=== PATIENT | female | born 1990 | race Caucasian/White ===

== ENCOUNTER 2017-02-09 14:30 | Emergency (ER) | payer BC ==
[2017-02-09 14:31] VITALS: BMI 21.2
[2017-02-09 14:36] VITALS: RESP 18; O2SAT 98
--- NOTE | 2017-02-09 15:17 | C.PDOC ---
History Of Present Illness 27 yr old female presents to the ER with complaints of sinus congestion, frontal headache for the past several days. Patient also reports of subjective fever 2 days ago, along with occasional cough and pleuritic chest pain. Patient reports limited relief with sudafed, mucinex and NSAIDS. Denies history of asthma, chest congestion, SOB, nausea, vomiting or neck pain. SINUS CONGESTION, FRONTAL MELENDEZ X SEV DAYS. SUBJ FEVER 2 DAYS AGO. +OCC COUGH. NO CHEST CONGESTION, SOB. +PLEURITIC CP. DENIES HO ASTHMA, SMOKING. LIMITED RELIEF W SUDAFED, MUCINEX, NSAIDS EXAM MILD DIST NONTOXIC HEENT +SINUS SINGH W CLEAR RHINORRHEA LUNGS CTA B/L NO W/R/R Time Seen by Provider: 02/09/17 14:50 Chief Complaint (Nursing): Chest Pain History Per: Patient History/Exam Limitations: no limitations Onset/Duration Of Symptoms: Days Current Symptoms Are (Timing): Still Present Past Medical History Reviewed: Historical Data, Nursing Documentation, Vital Signs Vital Signs: Last Vital Signs Temp 97.6 F 02/09/17 14:36 Pulse 86 02/09/17 14:36 Resp 18 02/09/17 14:36 BP 114/81 02/09/17 14:36 Pulse Ox 98 02/09/17 15:20 - Medical History PMH: Gastritis, Kidney Stones Comment Only: Asthma (as a child) Surgical History: Tonsillectomy Family History: States: No Known Family Hx - Social History Hx Tobacco Use: No Hx Alcohol Use: Yes Hx Substance Use: No - Immunization History Hx Tetanus Toxoid Vaccination: No Hx Influenza Vaccination: No Hx Pneumococcal Vaccination: No Review Of Systems Except As Marked, All Systems Reviewed And Found Negative. Constitutional: Positive for: Fever (Subjective) ENT: Positive for: Other ((+) Sinus congestion) Cardiovascular: Positive for: Chest Pain (Pleuritic chest pain) Respiratory: Positive for: Cough. Negative for: Shortness of Breath Gastrointestinal: Negative for: Nausea, Vomiting Musculoskeletal: Negative for: Neck Pain Neurological: Positive for: Headache (Frontal headache) Physical Exam - Physical Exam Appears: Non-toxic, In Acute Distress (Mild) Skin: Warm, Dry, No Rash Head: Atraumatic, Normacephalic Eye(s): bilateral: Normal Inspection, PERRL, EOMI Ear(s): Bilateral: Normal Nose: Discharge (Clear rhinorrhea), Other ((+) Sinus congestion ) Oral Mucosa: Moist Respiratory: Normal Breath Sounds, No Rales, No Rhonchi, No Stridor, No Wheezing Gastrointestinal/Abdominal: Normal Exam, Soft, No Tenderness, No Guarding, No Rebound Extremity: Normal ROM, No Swelling Neurological/Psych: Oriented x3, Normal Speech, Normal Motor ED Course And Treatment O2 Sat by Pulse Oximetry: 98 (RA) Pulse Ox Interpretation: Normal - Radiology CXR: Interpreted by Me, Viewed By Me CXR Interpretation: Yes: No Acute Disease Medical Decision Making Medical Decision Making: PLAN: * CXR Disposition Counseled Patient/Family Regarding: Diagnosis, Need For Followup - Disposition Referrals: YOUR,PMD [Other] Disposition: HOME/ ROUTINE Disposition Time: 15:18 Condition: GOOD Additional Instructions: AFRIN NASAL SPRAY DIRECTED MAX 3 DAYS USE. Prescriptions: Loratadine [Claritin] 10 mg PO DAILY #20 tab Oxymetazoline 0.05% [Oxymetazoline HCl 30 Ml] 2 spr NS BID #1 bottle Pseudoephedrine HCl [Sudafed 24 Hour] 240 mg PO DAILY PRN #1 unit PRN Reason: Sinus Symptoms Instructions: Sinusitis (ED) Forms: [facility] (Divehi) - Clinical Impression Clinical Impression: Pleurisy, Sinusitis - Scribe Statement The provider has reviewed the documentation as recorded by the Andrésibelodia Ellis Provider Attestation: All medical record entries made by the Scribe were at my direction and personally dictated by me. I have reviewed the chart and agree that the record accurately reflects my personal performance of the history, physical exam, medical decision making, and the department course for this patient. I have also personally directed, reviewed, and agree with the discharge instructions and disposition.
--- NOTE | 2017-02-09 15:35 | RAD ---
HISTORY: cough COMPARISON: None available. TECHNIQUE: Chest PA and lateral FINDINGS: LUNGS: No focal consolidation. Please note that chest x-ray has limited sensitivity for the detection of pulmonary masses. PLEURA: No significant pleural effusion identified. No definite pneumothorax . CARDIOVASCULAR: The cardiomediastinal silhouette appears within normal limits of size. OSSEOUS STRUCTURES: No acute osseous abnormality identified. VISUALIZED UPPER ABDOMEN: Unremarkable. OTHER FINDINGS: None. IMPRESSION: No focal consolidation, significant pleural effusion, or definite pneumothorax identified.
[2017-02-09 15:41] VITALS: BP 114/69; PULSE 82; TEMP 98.1
== END 2017-02-09 15:33 | disposition home or self-care (01) ==
LOC: C.ER 14:30
DX: J32.9 Chronic sinusitis, unspecified (principal); R09.1 Pleurisy

== ENCOUNTER 2017-11-08 13:22 | Emergency (ER) | payer BC, OTHER ==
[2017-11-08 13:22] VITALS: BMI 21.2
[2017-11-08] MEDS ORDERED: Sodium Chloride 0.9% 1,000 ML IV STA (13:28)
--- NOTE | 2017-11-08 13:35 | C.PDOC ---
History Of Present Illness 27 y/o F c no PMHx p/w R flank pain x 30 minutes. Pain is severe, R flank radiating to R lower abdomen, associated with NBNB vomiting. Patient has never had this pain before. Denies fever, chills, chest pain, dyspnea, diarrhea, constipation, rash, dysuria, hematuria. Time Seen by Provider: 11/08/17 13:28 Past Medical History Vital Signs: Last Vital Signs Temp 97.4 F L 11/08/17 13:38 Pulse 90 11/08/17 13:38 Resp 24 11/08/17 13:38 BP 131/89 11/08/17 13:38 Pulse Ox 100 11/08/17 13:38 - Medical History PMH: Gastritis, Kidney Stones Comment Only: Asthma (as a child) Surgical History: Tonsillectomy Family History: States: No Known Family Hx - Social History Hx Tobacco Use: No Hx Alcohol Use: Yes Hx Substance Use: No - Immunization History Hx Tetanus Toxoid Vaccination: No Hx Influenza Vaccination: No Hx Pneumococcal Vaccination: No Review Of Systems Except As Marked, All Systems Reviewed And Found Negative. Constitutional: Negative for: Fever Respiratory: Negative for: Shortness of Breath Physical Exam - Physical Exam Additional Physical Exam Comments: Constitutional: Writhing in pain Head: Normocephalic. Atraumatic. Eyes: PERRL. ENT: Moist mucous membranes. Neck: Supple. Cardiovascular: Regular rate. Radial pulse 2+ bilaterally. Chest: No tenderness. Respiratory: Clear to auscultation bilaterally. GI: Soft. Nontender. Nondistended. Back: R CVA tenderness Musculoskeletal: No tenderness or swelling of extremities. Skin: No rash. Neurologic: Alert, no focal deficit. ED Course And Treatment - Laboratory Results Result Diagrams: 11/08/17 13:37 11/08/17 13:37 Medical Decision Making Medical Decision Making: Differential includes nephrolithiasis, pyelonephritis, ectopic . Will evaluate further with labs, urine, noncontrast CT. Treated with toradol, IVF, Zofran. IMPRESSION: Mild right hydronephrosis and hydroureter up to 2 millimeter calculus at the UV junction. Bilateral 2 millimeter nonobstructing renal calculi. F/u urology, return to ED for worsening pain, inability to take PO, fever, or any other problem. Drug registry checked, no previous prescriptions in prior year, advised on risks of narcotic use. Disposition - Disposition Referrals: Mark Schneider MD [Staff Provider] - Disposition: HOME/ ROUTINE Disposition Time: 15:59 Condition: STABLE Additional Instructions: IMPRESSION: Mild right hydronephrosis and hydroureter up to 2 millimeter calculus at the UV junction. Bilateral 2 millimeter nonobstructing renal calculi. Prescriptions: Famotidine [Pepcid] 1 tab PO BID #14 tab Ibuprofen [Motrin] 1 tab PO Q6 #30 tab Ondansetron ODT [Zofran ODT] 4 mg PO Q8 #12 odt oxyCODONE/Acetaminophen [Percocet 5/325 mg Tab] 1 - 2 tab PO Q6 PRN #10 tab PRN Reason: Pain, Severe (8-10) Tamsulosin [Flomax] 0.4 mg PO DAILY #5 cap Instructions: Kidney Stones (DC) Forms: Work Excuse - Clinical Impression Clinical Impression: Kidney stone
[2017-11-08 13:43] LABS: BASO % 0.2 % (0.0-2.0); EOS # 0.4 K/uL (0.0-0.7); EOS % 6.7 % (0.0-4.0); HEMOGLOBIN 14.1 g/dL (11.0-16.0); LYMPH # 2.3 K/uL (1.0-4.3); LYMPH % 37.5 % (20.0-40.0); MEAN CELL VOLUME 90.6 fL (81.0-99.0); MEAN CORPUSCULAR HEMOGLOBIN 30.7 pg (27.0-31.0); MEAN CORPUSCULAR HGB CONC 33.9 g/dL (33.0-37.0); MEAN PLATELET VOLUME 10.9 fL (7.2-11.7); MONO # 0.6 K/uL (0.0-0.8); MONO % 10.4 % (0.0-10.0); NEUT # 2.7 K/uL (1.8-7.0); NEUT % 45.2 % (50.0-75.0); RBC 4.58 Mil/uL (3.80-5.20); RED CELL DISTRIBUTION WIDTH 12.5 % (11.5-14.5); WHITE BLOOD COUNT 6.1 K/uL (4.8-10.8)
[2017-11-08] MEDS ORDERED: Sodium Chloride 0.9% 1,000 ML ONE (13:50)
[2017-11-08 13:57] LABS: ALB/GLOB RATIO 1.6 (1.0-2.1); ALBUMIN 4.6 g/dL (3.5-5.0); ALT/SGPT 47 U/L (9-52); AST/SGOT 27 U/L (14-36); BLOOD UREA NITROGEN 12 mg/dL (7-17); GFR AFRICAN-AMERICAN > 60; GFR NON-AFRICAN AMERICAN > 60; LIPASE 101 U/L (23-300)
[2017-11-08 14:00] VITALS: O2SAT 100
[2017-11-08] MEDS ORDERED: Morphine 4 MG/ML VIAL ONE (14:24)
[2017-11-08 15:21] LABS: HCG,QUALITATIVE URINE NEGATIVE (NEGATIVE)
[2017-11-08 15:22] LABS: SQUAMOUS EPITHIAL 2 /hpf (0-5); URINE BILIRUBIN NEGATIVE (NEGATIVE); URINE BLOOD NEGATIVE (NEGATIVE); URINE CLARITY Clear (Clear); URINE COLOR Colorless (YELLOW); URINE GLUCOSE (UA) NORMAL (Normal); URINE LEUKOCYTE ESTERASE NEG Leu/uL (Negative); URINE PROTEIN NEGATIVE (NEGATIVE); URINE UROBILINOGEN NORMAL mg/dL (0.2-1.0)
--- NOTE | 2017-11-08 15:53 | CT ---
Date of service: 11/08/2017 PROCEDURE: CT Abdomen and Pelvis without intravenous contrast HISTORY: R flank pain COMPARISON: Comparison is made with prior study dated 03/13/2014 TECHNIQUE: A axial and reformatted coronal and sagittal CT images of the abdomen and pelvis were obtained without IV or oral contrast administration. Contrast dose: 0 Radiation dose: Total exam DLP = 374.57 mGy-cm. This CT exam was performed using one or more of the following dose reduction techniques: Automated exposure control, adjustment of the mA and/or kV according to patient size, and/or use of iterative reconstruction technique. FINDINGS: LOWER THORAX: Unremarkable. LIVER: Unremarkable. No gross lesion or ductal dilatation. GALLBLADDER AND BILE DUCTS: Unremarkable. PANCREAS: Unremarkable. No gross lesion or ductal dilatation. SPLEEN: Unremarkable. ADRENALS: Unremarkable. No mass. KIDNEYS AND URETERS: If there is a mild right hydronephrosis and hydroureter up to the UV junction. There is 2 millimeter calculus at the UV junction. There is 2 millimeter nonobstructing calculus at the lower pole of the right kidney. No evidence of left hydronephrosis. There is 2 millimeter nonobstructing calculus at the midpole of the left kidney. VASCULATURE: Unremarkable. No aortic aneurysm. BOWEL: Unremarkable. No obstruction. No gross mural thickening. APPENDIX: Unremarkable. Normal appendix. PERITONEUM: Unremarkable. No free fluid. No free air. LYMPH NODES: Unremarkable. No enlarged lymph nodes. BLADDER: Unremarkable. REPRODUCTIVE: The uterus and adnexa are grossly unremarkable. BONES: No acute fracture. OTHER FINDINGS: None. IMPRESSION: Mild right hydronephrosis and hydroureter up to 2 millimeter calculus at the UV junction. Bilateral 2 millimeter nonobstructing renal calculi.
[2017-11-08] MEDS ORDERED: Oxycodone/Acetaminophen 5/325 mg Tab PO STA (15:58)
[2017-11-08] MEDS ORDERED: Oxycodone/Acetaminophen 5/325 mg Tab ONE (16:10)
[2017-11-08 17:05] VITALS: BP 112/70; PULSE 56; RESP 16; TEMP 98.5
== END 2017-11-08 17:40 | disposition home or self-care (01) ==
LOC: C.ER 13:22
DX: N20.0 Calculus of kidney (principal)
CPT/HCPCS: 74176; 80053; 81001; 83690; 84703; 85025; 87086; 96361; 96374; 96375; 96376; 99285; J1885; J2270; J2405; J7030

== ENCOUNTER 2018-01-23 17:16 | Emergency (ER) | payer BC ==
[2018-01-23 17:17] VITALS: BMI 21.2
--- NOTE | 2018-01-23 17:49 | C.PDOC ---
History Of Present Illness 27 y/o female presents to ED complaining of acute exacerbation of headache that started earlier today. States she gets the headache 1-2 times a week but this one is more intense than usual. Patient normally takes medication for migraine but with no relief and tried OTC medications but could not take any due to vomiting. Notes of light sensitivity but denies fever. <Liset Larson - Last Filed: 01/23/18 18:32> History Per: Patient History/Exam Limitations: no limitations Onset/Duration Of Symptoms: Hrs Current Symptoms Are (Timing): Still Present <NeoLiset - Last Filed: 01/23/18 18:32> <Jaard Blank - Last Filed: 01/23/18 20:37> Time Seen by Provider: 01/23/18 17:44 Chief Complaint (Nursing): GI Problem Past Medical History Reviewed: Historical Data, Nursing Documentation, Vital Signs Vital Signs: Last Vital Signs Temp 98 F 01/23/18 17:30 Pulse 88 01/23/18 17:30 Resp 20 01/23/18 17:30 BP 122/76 01/23/18 17:30 Pulse Ox 97 01/23/18 17:30 - Medical History PMH: Gastritis, Kidney Stones Comment Only: Asthma (as a child) Surgical History: Tonsillectomy Family History: States: No Known Family Hx - Social History Hx Tobacco Use: No Hx Alcohol Use: Yes Hx Substance Use: No - Immunization History Hx Tetanus Toxoid Vaccination: No Hx Influenza Vaccination: No Hx Pneumococcal Vaccination: No <Liset Larson - Last Filed: 01/23/18 18:32> Vital Signs: Last Vital Signs Temp 98 F 01/23/18 17:30 Pulse 88 01/23/18 17:30 Resp 20 01/23/18 17:30 BP 122/76 01/23/18 17:30 Pulse Ox 97 01/23/18 18:33 <Jarad Blank - Last Filed: 01/23/18 20:37> Review Of Systems Except As Marked, All Systems Reviewed And Found Negative. Constitutional: Negative for: Fever Cardiovascular: Negative for: Chest Pain Respiratory: Negative for: Shortness of Breath Gastrointestinal: Positive for: Vomiting. Negative for: Nausea, Abdominal Pain Neurological: Positive for: Headache <NeoLiset - Last Filed: 01/23/18 18:32> Physical Exam - Physical Exam Appears: Non-toxic, In Acute Distress (moderate) Skin: Warm, Dry Head: Atraumatic, Normacephalic Eye(s): bilateral: Photophobia (but tolerating ambient light) Oral Mucosa: Moist Cardiovascular: Rhythm Regular, No Murmur Respiratory: Normal Breath Sounds, No Rales, No Rhonchi, No Wheezing Neurological/Psych: Oriented x3, Normal Speech, Normal Motor, Normal Sensation, Other (No focal deficits) Gait: Steady <Liset Larson - Last Filed: 01/23/18 18:32> ED Course And Treatment O2 Sat by Pulse Oximetry: 97 (RA) Pulse Ox Interpretation: Normal <Liset Larson - Last Filed: 01/23/18 18:32> Pulse Ox Interpretation: Normal Reevaluation Time: 20:21 Reassessment Condition: Improved <Jarad Blank - Last Filed: 01/23/18 20:37> Progress - Data Reviewed Data Reviewed: Old records <Liset Larson - Last Filed: 01/23/18 18:32> Medical Decision Making Medical Decision Making: Plan: --Decadron --Magnesium Sulfate --Reglan --IV Fluids --Toradol <Liset Larson - Last Filed: 01/23/18 18:32> Disposition - Disposition Disposition Time: 19:00 <Liset Larson Last Filed: 01/23/18 18:32> Counseled Patient/Family Regarding: Studies Performed, Diagnosis, Need For Followup, Rx Given <Jarad Blank - Last Filed: 01/23/18 20:37> - Disposition Referrals: Justin Gray MD [Staff Provider] - Disposition: HOME/ ROUTINE Condition: FAIR Additional Instructions: Please return if symptoms recur Prescriptions: Ondansetron ODT [Zofran ODT] 1 odt PO BID PRN #10 odt PRN Reason: Nausea/Vomiting Instructions: Headache, Adult (DC) Forms: [facility] (Setswana) - Clinical Impression Clinical Impression: Migraine, Vomiting - Scribe Statement The provider has reviewed the documentation as recorded by the Reese Bains Provider Attestation: All medical record entries made by the Andrésibe were at my direction and personally dictated by me. I have reviewed the chart and agree that the record accurately reflects my personal performance of the history, physical exam, medical decision making, and the department course for this patient. I have also personally directed, reviewed, and agree with the discharge instructions and disposition. <Liset Larson - Last Filed: 01/23/18 18:32> Physician Patient Turnover Patient Signed Over To: Jarad Blank Handoff Comments: FU REEVAL, DISPO <Liset Larson - Last Filed: 01/23/18 18:32>
[2018-01-23] MEDS ORDERED: Dexamethasone 4 mg/1 ml IVP STA (17:54)
[2018-01-23] MEDS ORDERED: Sodium Chloride 0.9% 1,000 ML IV STA (17:54)
[2018-01-23] MEDS ORDERED: Magnesium Sulfate 1 gm in D5W 1 GM/100 ML BAG IVPB STA (17:54)
[2018-01-23] MEDS ORDERED: Sodium Chloride 0.9% 1,000 ML ONE (18:23)
[2018-01-23] MEDS ORDERED: Dexamethasone 4 mg/1 ml ONE (18:24)
[2018-01-23] MEDS ORDERED: Magnesium Sulfate 1 gm in D5W 1 GM/100 ML BAG IVPB ONE (18:24)
[2018-01-23 20:51] VITALS: BP 113/74; PULSE 76; RESP 16; TEMP 98.4; O2SAT 100
== END 2018-01-23 20:51 | disposition home or self-care (01) ==
LOC: C.ER 17:16
DX: G43.909 Migraine, unspecified, not intractable, without status migrainosus (principal); R11.10 Vomiting, unspecified
CPT/HCPCS: 96365; 96375; 99284; J1100; J1885; J2765; J3475; J7030

== ENCOUNTER 2018-04-24 17:06 | Emergency (ER) | payer BC ==
[2018-04-24 17:06] VITALS: BMI 21.2
--- NOTE | 2018-04-24 17:47 | C.PDOC ---
History Of Present Illness 28 y/o with no significant PMH presents to ED c/o flu-like symptoms x 2 days. Symptoms include nausea, generalized myalgias, headache, fever. Has not taken any medications for symptoms. Tolerating PO. No sick contacts. No flu shot. Denies vomiting, diarrhea, back pain, abdominal pain, urinary symptoms, dizzinses, vision changes, neck pain/stiffness, sore throat, SOB, chest pain, or any other associated complaints. HPI: Influenza Time Seen by Provider: 04/24/18 17:35 Chief Complaint: Flu-like Symptoms Past Medical History Reviewed: Historical Data, Nursing Documentation, Vital Signs Vital Signs: Last Vital Signs Temp 100.4 F H 04/24/18 17:27 Pulse 112 H 04/24/18 17:27 Resp 18 04/24/18 17:27 BP 114/74 04/24/18 17:27 Pulse Ox 98 04/24/18 17:27 - Medical History PMH: Gastritis, Kidney Stones Comment Only: Asthma (as a child) Surgical History: Tonsillectomy Family History: States: No Known Family Hx - Social History Hx Tobacco Use: No Hx Alcohol Use: Yes Hx Substance Use: No - Immunization History Hx Tetanus Toxoid Vaccination: No Hx Influenza Vaccination: No Hx Pneumococcal Vaccination: No Review Of Systems Constitutional: Positive for: Fever, Chills, Other (generalized myalgias) Eyes: Negative for: Vision Change Cardiovascular: Negative for: Chest Pain, Palpitations, Light Headedness Respiratory: Positive for: Cough. Negative for: Shortness of Breath Gastrointestinal: Positive for: Nausea. Negative for: Vomiting, Abdominal Pain Musculoskeletal: Negative for: Neck Pain, Back Pain Skin: Negative for: Rash Neurological: Negative for: Weakness, Numbness, Headache, Dizziness Physical Exam - Physical Exam Appears: Well, Non-toxic, No Acute Distress Skin: Normal Color, Warm, Dry Head: Atraumatic, Normacephalic Eye(s): bilateral: Normal Inspection, PERRL, EOMI Nose: Normal Oral Mucosa: Moist Throat: Normal Neck: Normal, Normal ROM, Supple, No Other (meningeal signs ) Lymphatic: Normal Exam Cardiovascular: Rhythm Regular Respiratory: Normal Breath Sounds Gastrointestinal/Abdominal: Normal Exam, Soft, No Tenderness Back: Normal Inspection Extremity: Normal ROM, Capillary Refill (<2s) Pulses: Left Radial: Normal, Right Radial: Normal Neurological/Psych: Oriented x3, Normal Speech, Normal Motor, Normal Sensation Gait: Steady Medical Decision Making Medical Decision Making: Initial Plan: * CXR * Tylenol * Reassess and Disposition CXR: Findings: No focal infiltrate or effusion. Heart size within normal limits. Impression: No focal infiltrate or effusion. Will treat empirically for flu with Tamiflu secondary to flu-like symptoms and negative CXR. Diagnostic testing results and plan of care discussed with patient. Strict instructions given regarding prescription use, importance of followup, and si gns/symptoms to return to ER including vomiting, chest pain, SOB, or any other new/worsening symptoms. Pt verbalized understanding of discussion. Patient is A&Ox3, ambulating with steady gait, with vital signs stable for discharge. - ECG O2 Sat by Pulse Oximetry: 98 Disposition - Disposition Referrals: [facility] [Outside] Disposition: HOME/ ROUTINE Disposition Time: 19:30 Condition: IMPROVED Additional Instructions: Tamiflu every 12 hours for 5 days, 9 more doses Increase fluids Rest, no strenuous activity Followup with primary doctor tomorrow Return to ER with any new/worsening symptoms Prescriptions: Oseltamivir Cap [Tamiflu] 75 mg PO Q12H #9 cap Instructions: Flu, Adult (DC) Forms: General Discharge Instructions, [facility] (Chinese), Work Excuse - Clinical Impression Clinical Impression: Influenza-like illness
[2018-04-24 18:39] VITALS: PULSE 96
--- NOTE | 2018-04-24 18:53 | RAD ---
Chest x-ray two views HISTORY: Evaluate for pneumonia. Comparison: 02/09/2017 Findings: No focal infiltrate or effusion. Heart size within normal limits. Impression: No focal infiltrate or effusion.
[2018-04-24 19:30] VITALS: BP 99/62; RESP 18; TEMP 99.9; O2SAT 98
== END 2018-04-24 19:31 | disposition home or self-care (01) ==
LOC: C.ER 17:06
DX: J11.1 Influenza due to unidentified influenza virus with other respiratory manifestations (principal)